=== PATIENT | male | born 1985 | race Caucasian/White ===

== ENCOUNTER 2018-04-25 16:30 | Emergency (ER) | payer OTHER ==
[~2018-04-25] VITALS: Ht 170.2 cm; Wt 81.7 kg
[2018-04-25] MEDS ORDERED: NORCO 5-325 TA1 EAC1 PO (18:18)
[2018-04-25] MEDS ORDERED: AUGMENTIN 875-1 EACH PO (18:18)
[2018-04-25 19:13] VITALS: BP 141/72
== END 2018-04-25 19:17 | disposition home or self-care (01) ==
LOC: M.ERS 16:30
DX: S51.811A Laceration without foreign body of right forearm, initial encounter (principal); W54.0XXA Bitten by dog, initial encounter; Y93.89 Activity, other specified; Y92.89 Other specified places as the place of occurrence of the external cause; Y99.8 Other external cause status

== ENCOUNTER 2018-08-28 14:49 | Emergency (ER) | payer OTHER ==
[~2018-08-28] VITALS: Ht 170.2 cm; Wt 77.1 kg
[~2018-08-28 14:49] MED LIST: AUGMENTIN 875-1 EACH PO; NORCO 5-325 TA1 EAC1 PO
[2018-08-28] MEDS ORDERED: IBUPROFEN 800800 M1 PO (16:18)
[2018-08-28] MEDS ORDERED: AUGMENTIN 875-1 EACH PO (16:18)
[2018-08-28] MEDS ORDERED: NORCO 5-325 TA1 EAC1 PO (16:18)
[2018-08-28 16:37] VITALS: BP 147/97
== END 2018-08-28 16:38 | disposition home or self-care (01) ==
LOC: M.ERS 14:49
DX: S21.012A Laceration without foreign body of left breast, initial encounter (principal); W54.0XXA Bitten by dog, initial encounter; Y93.89 Activity, other specified; Y92.89 Other specified places as the place of occurrence of the external cause; Y99.8 Other external cause status